=== PATIENT | female | born 1965 | race Hispanic/Latino ===

== ENCOUNTER 2022-04-23 11:21 | Emergency (ER) | payer OTHER ==
[~2022-04-23] VITALS: Ht 154.9 cm; Wt 64.0 kg
[2022-04-23] MEDS ORDERED: ACETAMINOPHEN 325 MG TAB PO ONE (11:45)
[2022-04-23] MEDS ORDERED: TRAMADOL HCL 50 MG TAB PO ONE (11:45)
[2022-04-23 13:57] VITALS: BP 105/75
[2022-04-23] MEDS ORDERED: ULTRAM 50MG50 MG PO (14:02)
== END 2022-04-23 14:15 | disposition home or self-care (01) ==
LOC: ER 11:39
DX: M25.552 Pain in left hip (principal); M65.252 Calcific tendinitis, left thigh; X50.1XXA Overexertion from prolonged static or awkward postures, initial encounter; Y93.41 Activity, dancing; Y92.89 Other specified places as the place of occurrence of the external cause; I10 Essential (primary) hypertension; E11.9 Type 2 diabetes mellitus without complications
CPT/HCPCS: 99283